=== PATIENT | female | born 1975 | race Caucasian/White ===

== ENCOUNTER 2019-11-18 15:30 | Emergency (ER) | payer MEDICAID, SELFPAY ==
[2019-11-18 15:32] VITALS: BP 140/96; PULSE 100; RESP 20; TEMP 36.4; O2SAT 100; BMI 31.6
--- NOTE | 2019-11-18 15:43 | RAD_ITS ---
STUDY: X-RAY - LUMBAR SPINE REASON FOR EXAM: Female, 44 years old. PAIN, PT FELL DOWN STEPS, PREVIOUS SURGERY, DISCECTOMY TECHNIQUE: 3 view(s) of the lumbar spine were obtained. COMPARISON: None FINDINGS: There is straightening of the normal lumbar lordosis. Mild levocurvature of the lumbar spine. There is a normal alignment of the vertebrae. Superior endplate compression deformity of L2 which appears recent which appears to involve the anterior column and central vertebral body with a 25% loss of height anteriorly without loss of height posteriorly. Compression deformity is slightly greater on the right than the left side of the vertebral body. No evidence for posterior element fracture. Normal vertebral body height at other lumbar levels. There is advanced degenerative disc narrowing, spondylitic endplate changes and discogenic sclerosis at L3-4 and L4-5. Hypertrophic facet arthrosis is present in most lumbar levels. RAD/Lumbar Spine 2 or 3 Views IMPRESSION: Straightening of the lumbar spine with a mild levocurvature. Recent superior endplate compression deformity of L2 involving primarily the central vertebral body and anterior column with 25% loss of height, greater on the right side of the vertebral body than left. Negative for evidence of posterior involvement. Advanced disc narrowing, spondylitic endplate changes and discogenic sclerosis at L3-4 and L4-5. Hypertrophic facet arthrosis at most lumbar levels. Electronically Signed: Radha France MD at 16:39 EDT , Service support ,
[2019-11-18] MEDS: Ketorolac 15 MG/ML Vial IV (16:03)
--- NOTE | 2019-11-18 16:17 | ED.VIS.GEN ---
History of Present Illness Chief Complaint: Fall Informant: Patient Onset: Today Context: Sudden Onset Timing: Continuous Quality: Pain Location: Lower back Current Severity: Moderate Maximum Severity: Severe Worsened by: Uncertain Relieved by: Nothing Associated Symptoms: No associated saddle paresthesia, radiculopathy or inability to move legs Narrative: States she fell face first going down steps but landed on her buttocks. She denies drinking. She denies head trauma. She denies loss of conscious. Denies neck pain. She does have history of chronic back pain and states she is scheduled for a fusion. She denies bowel bladder dysfunction prior to fall. She denies radicular pain. She states she has a foot drop. She is not on an anticoagulant. She reports no allergies. Prior similar symptoms: No Recent Illness/Hospitalization: No - Past Medical History (1) Chronic back pain Status: Chronic Past Medical History - Allergies and Home Meds Allergies/Adverse Reactions: Allergies No Known Allergies Allergy (Verified 11/18/19 15:35) Primary Care Physician: Rosalie Grant,Out of [Primary Care Provider] - Prior records reviewed: Yes Surgical History: noncontributory Lives: Alone Smoking Status: Current every day smoker Alcohol: Rare Drugs: None Review of Systems Eyes: Denies: Visual changes - bilaterally, Blurred Vision - bilaterally ENT: Denies: Rhinorrhea, Sore throat Cardiovascular: Denies: Chest pain, Palpitations Respiratory: Denies: Dyspnea, Cough, Dyspnea on exertion Gastrointestinal: Denies: Abdominal pain, Nausea, Vomiting, Diarrhea, Melena, Hematochezia Genitourinary: Denies: Dysuria, Hematuria, Frequency Musculoskeletal: Reports: Back pain. Denies: Myalgias, Arthralgias, Neck pain, Swelling, Extremity Pain, -, - Skin: Denies: Rash, Wounds Neurological: Denies: Headache, Weakness, Parasthesia, Numbness Endocrine: Denies: Polyuria, Polydipsia Hematologic: Denies: Easy bruising, Easy bleeding Physical Exam Vital Signs/Narrative: Vital Signs Temp Pulse Resp BP Pulse Ox 11/18/19 15:32 97.5 F L 100 20 H 140/96 H 100 Inital Vital Signs reviewed: Yes General: Well nourished, Well developed, Obese, Acute Distress Head: Normocephalic, Atraumatic, - - No clinical finding of basilar skull fracture.. Negative for: Trauma, Tenderness Eyes: Perrl, EOMI, - - No subconjunctival hemorrhage noted.. Negative for: Pale conjunctiva, Scleral icterus ENT: Moist mucous membranes, No rhinorrhea, TM's clear, - - Is no septal deviation hematoma noted. Neck: Supple, Nontender, No lymphadenopathy, No JVD, - - Active range of motion of her neck without pain. Cardiovascular: Regular rate, Regular rhythm, No murmurs, Normal S1, Normal S2 Respiratory: No distress, CTA bilaterally, Chest nontender Abdomen: Soft, Nontender, Nondistended, Normal bowel sounds, - - No pain to palpation of the pelvis. Rectal: Deferred Back: Normal Inspection, - - Bilateral paralumbar discomfort. She has pain on proportion to tactile stimuli. Of note patient screamed when I tested for Babinski sign.. Negative for: Nontender, CVA tenderness Extremities: Nontender, No edema. Negative for: Tenderness, Edema Skin: Normal color, No rash, No Trauma. Negative for: Cyanosis, Diaphoresis, Jaundice Neurological: Alert, Oriented x3, Cranial nerves II-XII grossly intact, Normal Strength, Normal Sensation, Normal DTR Psychological: Tearful Diagnostic/Tx/Re-eval Chest X-Ray - ED: Read by ED Physician, - - View x-ray of the LS spine reveals a compression fracture of L2 of undetermined age. There is minimal degenerative changes noted. Impressions Lumbar Spine X-Ray 11/18/19 15:43 IMPRESSION: Straightening of the lumbar spine with a mild levocurvature. Recent superior endplate compression deformity of L2 involving primarily the central vertebral body and anterior column with 25% loss of height, greater on the right side of the vertebral body than left. Negative for evidence of posterior involvement. Advanced disc narrowing, spondylitic endplate changes and discogenic sclerosis at L3-4 and L4-5. Hypertrophic facet arthrosis at most lumbar levels. Electronically Signed: Radha France MD at 16:39 EDT , Service support , 11/18/19 15:43 Lumbar Spine 2 or 3 Views [RAD] Stat Since the compression fracture is less than 50% there is no concern for instability or burst fracture. - Medical Decision Making IV was established. Patient was medicated with pain medicine. X-ray was obtained to rule out fracture versus contusion versus strain. ED Disposition - Plan for ED Patient: Disposition: Home or Assisted Living Diagnosis: Compression fracture of L2 lumbar vertebra Instructions: ED Fx Comp Vertebral Referrals: [facility],Out of [Primary Care Provider] - As soon as possible Additional Instructions: You are a pain management patient I do not want a violate your contract therefore you will not receive a prescription for opiate analgesics. We will need to contact her pain management physician.
[2019-11-18] MEDS: Morphine 4 MG/ML Syringe IV (17:11)
[2019-11-18 19:14] VITALS: BP 146/82; PULSE 77; RESP 16; O2SAT 99
== END 2019-11-18 19:15 | disposition home or self-care (01) ==
LOC: ED 17:40
PROVIDERS: Emergency Provider Emergency Medicine
DX: S32.029A Unspecified fracture of second lumbar vertebra, initial encounter for closed fracture (principal); W10.9XXA Fall (on) (from) unspecified stairs and steps, initial encounter; R29.890 Loss of height; M54.9 Dorsalgia, unspecified; G89.29 Other chronic pain; F17.200 Nicotine dependence, unspecified, uncomplicated
CPT/HCPCS: 72100; 96374; 96375; 99285; A4216

== ENCOUNTER → 2022-03-25 | Outpatient (CLI) | payer MEDICAID, SELFPAY ==
--- NOTE | 2022-03-25 16:33 | RAD_ITS ---
STUDY: X-RAY EXAMINATION: SCOLIOSIS SERIES REASON FOR EXAM: Female, 46 years old. Lumbar stenosis. TECHNIQUE: 3 frontal view(s) of the thoracolumbar spine were obtained in the upright standing position. COMPARISON: 11/18/2019. FINDINGS: Extensive fusion from T11 to L5 S1 and both sacroiliac joints. Minimal levoscoliosis of the lumbar spine. The soft tissue structures are unremarkable. RAD/Scoliosis 1 view IMPRESSION: Extensive fusion with minimal levoscoliosis. No acute abnormality identified on the 3 frontal views. Electronically Signed: Zac Garibay, at 10:03 EDT ,
== END | disposition home or self-care (01) ==
DX: M48.062 Spinal stenosis, lumbar region with neurogenic claudication (principal)
CPT/HCPCS: 72081

== ENCOUNTER → 2022-04-16 | Outpatient (CLI) | payer OTHER, SELFPAY ==
--- NOTE | 2022-04-16 17:05 | RAD_ITS ---
STUDY: X-RAY - CERVICAL SPINE REASON FOR EXAM: Female, 46 years old. Neck pain and headache TECHNIQUE: 7 view(s) of the cervical spine were obtained. COMPARISON: None FINDINGS: Normal anterior atlantoaxial articulation. Normal odontoid process. Normal cervical lordosis. Normal vertebral bodies and endplates. Normal disc space heights. Normal visualized intervertebral neuroforamina. No demonstrated fracture, no instability on the flexion or extension views The soft tissue structures are unremarkable. RAD/Cerv Spine Obl/Flex/Ext Comp IMPRESSION: Normal x-ray examination of the visualized cervical spine. Electronically Signed: Darian Cedeño MD at 7:49 EDT ,
--- NOTE | 2022-04-16 17:05 | RAD_ITS ---
STUDY: THORACIC AND LUMBAR SPINE REASON FOR EXAM: Female, 46 years old. Back pain with previous surgery RADIATION DOSAGE (If Supplied By Facility): CTDIvol = ( ) mGy, DLP = ( ) mGycm. Individualized dose optimization techniques were used for this CT.? TECHNIQUE: 7 views, 3 AP, 4 lateral COMPARISON: 03/25/2022 FINDINGS: There is a surgically stabilized levoscoliosis in the lumbar spine. Pedicle screw fusion has occurred from T11 to L5 and S1 including fusion through the SI joints. The hardware is intact and free of complication. No demonstrated acute or chronic fracture, there is preservation of the disc spaces in the thoracic spine but disc space narrowing throughout the lumbar spine particularly at L3-4 and L4-5 due to vacuum disc phenomena. No paraspinal mass or absent pedicle. RAD/Scoliosis 2 or 3 views IMPRESSION: Age consistent degenerative changes with stable surgical hardware from T11 through S1. No acute abnormality, October complication or failure Stable minimal levoscoliosis in the lumbar spine Electronically Signed: Darian Cedeño MD at 7:48 EDT ,
== END | disposition home or self-care (01) ==
LOC: RAD 16:55
DX: M41.85 Other forms of scoliosis, thoracolumbar region (principal); M50.90 Cervical disc disorder, unspecified, unspecified cervical region
CPT/HCPCS: 72052; 72082

== ENCOUNTER → 2022-07-10 | Outpatient (CLI) | payer OTHER, SELFPAY ==
--- NOTE | 2022-07-10 13:30 | RAD_ITS ---
STUDY: X-RAY EXAMINATION: SCOLIOSIS SERIES REASON FOR EXAM: Female, 46 years old. SCOLIOSIS TECHNIQUE: 2 view(s) of the thoracolumbar spine were obtained in the upright standing position. COMPARISON: None. FINDINGS: Lungs are hyperaerated. Lumbar hardware noted. Mild levoconvex scoliosis lumbar spine. Posterior interbody fusion rods and pedicular screws T11-S1. Compression fracture and vertebral body spacer L2. 3 to 4 mm retrolisthesis L2 on L3. This appears unchanged. Hardware appears intact. Remainder of the spine appears normal. RAD/Scoliosis 2 or 3 views IMPRESSION: Status post ORIF L2 compression fracture with slight retrolisthesis unchanged. Mild levoconvex scoliosis lumbar spine unchanged. No acute change. Electronically Signed: Durga Hugo MD at 1:01 EST ,
== END | disposition home or self-care (01) ==
LOC: RAD 13:20
PROVIDERS: PCP Family Medicine
DX: M51.26 Other intervertebral disc displacement, lumbar region (principal); M41.85 Other forms of scoliosis, thoracolumbar region
CPT/HCPCS: 72082

== ENCOUNTER → 2023-10-28 | Outpatient (CLI) | payer BC, MEDICAID, SELFPAY ==
--- NOTE | 2023-10-28 12:15 | RAD_ITS ---
STUDY: X-RAY - THORACIC SPINE REASON FOR EXAM: Female, 48 years old. Spinal fusion. Follow-up. TECHNIQUE: 2 view(s) of the thoracic spine were obtained on 3 images. COMPARISON: July 10, 2022 FINDINGS: Increased kyphosis, unchanged. No scoliosis. Posterior fusion from T11 with intervertebral disc prosthesis at L1-2, unchanged in position and alignment. Diffuse intervertebral disc space narrowing, unchanged. Normal soft tissues. RAD/Thoracic Spine 2 Views IMPRESSION: Stable posterior fusion of the lower thoracic spine with diffuse mild spondylosis. No complications. Electronically Signed: Zac Garibay MD at 10:19 EDT ,
== END | disposition home or self-care (01) ==
PROVIDERS: PCP Family Medicine
DX: M43.24 Fusion of spine, thoracic region (principal)
CPT/HCPCS: 72070

== ENCOUNTER → 2023-11-17 | Outpatient (CLI) | payer BC, MEDICAID, SELFPAY ==
--- NOTE | 2023-11-17 07:05 | CT_ITS ---
INDICATION: RADICULOPATHY LUMBAR REGION EXAMINATION: CT LUMBAR SPINE - CT Spine Lumbar W/ Contrast Injection TECHNIQUE: Helically acquired images were obtained of the lumbar spine. 2D reformats were reviewed. A radiation dose optimization technique was used for this scan. IV Contrast dosage and agent: None. COMPARISON: Scoliosis survey 07/10/2022. FINDINGS: VERTEBRAE: No fracture or acute compression deformity. Prior L2 laminectomy with vertebral body spacer placement. Additional multilevel laminectomy throughout the lower thoracic and lumbar spine. Bilateral transpedicular fixation T11-S1 and bilateral iliac wing. No discrete lytic or blastic abnormality observed. Preserved lumbar lordosis and lower thoracic kyphosis without listhesis. DISCS and SPINAL CANAL: Bulky T10-T11 spinal canal osseous stenosis, axial image 10 series 2 partially decompressed by laminectomy. Diffuse disc height loss without gross posterior disc protrusion. VISUALIZED ABDOMEN: Visualized abdominal aorta is not dilated. There is no retroperitoneal adenopathy. Aortic atherosclerosis without ectasia. CT/Spine Lumbar WITH Contrast IMPRESSION: Bulky osseous proliferation along the spinal canal at T10-T11 with severe spinal stenosis, at least partially decompressed by laminectomy. Laminectomies throughout the lower thoracic and lumbar spine with transpedicular fixation T11-S1 and iliac wings. Electronically Signed: Ned Doyle MD at 23:09 EDT ,
== END | disposition home or self-care (01) ==
LOC: CT 07:02
PROVIDERS: PCP Family Medicine; Referring Provider Registered Nurse Maternal Newborn; Visit Provider Registered Nurse Maternal Newborn
DX: M54.16 Radiculopathy, lumbar region (principal); M21.372 Foot drop, left foot; M43.26 Fusion of spine, lumbar region
CPT/HCPCS: 72132; Q9967

== ENCOUNTER 2024-05-25 13:00 | Outpatient (RCR) | payer BC, SELFPAY ==
--- NOTE | 2024-03-10 12:26 | HP.PTEVAL_ITS ---
Patient's Visit Information Visit Information Visit Information: TAMMY MARTINEZ is a 48 year old F referred to Physical Therapy by EDITH KUMAR with a diagnosis of Postural kyphosis thoracic region, s/p t8-10 instrumentation, discectomy. Date of Evaluation: 03/10/24 Physical Therapist: Ranjit Christiansen, DPT, OCS, CSCS Visit Plan Frequency: 3x /Week Duration: 4-6 Weeks Plan: 3x/week for 4-6 weeks for 1. pelvic and spinal ROm emphasizing extnesion PROM and AROM exercises/yoga 2. core and LE and postural stregnth home mat to gym 3. balance work on pregait and somatosensory coordination of feet and ankles, please teach ankle TB strength for HEP early on 4. end with prone extension to tolerance or supine flat lie with MH for 5 min to stretch ourt psoas and get spine to extension. IE: sink exercises to 3x10, supine flat lie savasan 3-5 min 3x/day and walk up tall with walker for safety only, not leaning on it Subjective Subjective: Just had 4th spine surgery.Thoracic arthrodesis and discectomy. this was emergency due to R leg weak and not moving. Also B leg weakness. They were hard to move. Had pain in middle of back at the time also(also has lumbar pain from previous surgeires). Was dealing with that for 6 monthys gradually worsening. Has lost the feeling in bottoms of feet prior to surgery and that is coming back slowly. Got most of the rest of it back. Got most of leg movement back. May not get feeling in feet back. Unable to drive to numbness in feet. Sleep has been OK for the most part. Had spine surgery in fusion in LB 2 yrs ago with rods. On disability through work. Rests alot. Doctor thinks back to work in March. Works at [employer] on feet walking 40 hrs per week. Hobbies: none, Basic ADLs, dresses, bathroom, shower on own. slow but able but gets worn out. Steps 5 to room with railing, with railing. uses wh walker to get around much of time. sometimes without it at home. Precuations from doctor: nothing from patient. Had home health and doing kitchen sink [id number] Pain mid back: Pain Intensity (Out of 10): 0 Pain Intensity Range: 0 and 8 Comment: worse with waking at night sometimes, walking alot. Objective Objective: Walks relying in wh walker with uch weight through it hunched FW and R foot toe ing out.Mod I gait with walker. Min A without walker due to balance, has neuropathy in gait pattern without pushoff of ankles and short steps. trasnfers bed and chair I with UE. steps prefers r and needs rail but mod I up and down. standing balance wihtout walker CGA and hunches FW, kyphotic in t/s. incsion is central thoracic for the new one and healed well without much tenderness or any excessive redness, heat or swelling. Old incisions in lumbar area. Very poor to minimal pelvic movement especially anteriorly. Spinal multisegmental ROM ext only barey to neutral and hurts LB, SB max limited and contralterally uncomfortable thoracic. flexion is good but needs stability of UE to bend and recover. strength ankles DF R 3+ and L 4-, inv/.ev 3+ B, PF able to toe raise., knees 4/5 flexion and ext, hip abd and ext 3+ B, flexion 3+ B. Core abs 3, extensors 3. rom WFL but tightness in psoas makes flat supine stretchy and uncomfy. reflexes 2/3 patella adn achilles B. Sensation LE at deficit to gross light touch in feet and into Lower legs. Balance/Special Test Scores Oswestry Low Back Score: 27 Goals Goal 1:: stand without walker ec 30 seconds easilya nd safely Goal Time Frame: 4-6 Weeks Goal 2:: I appropriate HEP for core strenght/balance and spinal ROM to limit future problems. Goal Time Frame: 4-6 Weeks Goal 3:: Pain 2/10 at worst and 75% better Goal Time Frame: 4-6 Weeks Goal 4:: walk without AD one lap safely and without hunching over. Goal Time Frame: 4-6 Weeks Goal 5:: oswestry score 10 or better Goal Time Frame: 4-6 Weeks Rehabilitation Potential Physical Therapy Diagnosis: back stiffness and weakness in trunk and legs and sensory deficits causing balance and mobility problems. Rehabilitation Potential: Fair Anticipated Interventions Patient/Client Instruction: Educate patient on: Condition and Plan of Care For the Purpose of:: To decrease pain, To increase ROM and To improve nutrient delivery to tissue Therapeutic Exercise to Include: Strength training, Balance training, Coordination, Postural training, Flexibilty training, Gait and locomotor training, Passive ROM, Active ROM and Dynamic Lumbar Stabilization For the Purpose of:: To decrease pain, To increase ROM, To improve nutrient delivery to tissue, To improve muscle performance and motor function, To increase tolerance to activity/condition/position and To improve gait and locomotor functions Manual Therapy Techniques to Include: Scar massage, Mobilization, Passive ROM and Soft tissue mobilization For the Purpose of:: To decrease pain and To increase ROM Thermo therapy (hot pack): Yes For the Purpose of:: To decrease pain and To increase ROM Text: Thank you for the opportunity to evaluate your patient. For Medicare and Medicare HMO plans, please review the plan of care and approve it. It will need to be FAXED BACK to us at [phone] for Medicare purposes. For Medicare only, by signing this I certify the plan of care. Please let me know if there are questions or concerns regarding this plan of care. Physician Signature: Date:
--- NOTE | 2024-04-22 13:45 | HP.PTREVAL ---
Re-Evaluation Intro: EDITH KUMAR, It has been my pleasure to treat TAMMY MARTINEZ over the last 7 visits for Postural kyphosis thoracic region, s/p t8-10 instrumentation, discectomy. Please see the progress note below for an update on the physical therapy plan of care! Subjective Subjective: Didn't have a ride last couple weeks. She drove here today herself. Using cane to get around now as brother is using walker. Driving wears her out. better mobility. Still pain 6-8/10 normally. Activitiy makes it worse and has been very busy as she is helping her brother out. Lots of family responsibilities currently. Sleep is OK most of time. Activities, doing things but gets painful. 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 HEP going well. daily and standing at sink. To pain doctor in April adn surgeon Jun 27, still on no heavy lifting precautions or twisting lifting, bending. Objective Objective/Function: Walking with cane in PT hunched over and poor pelvic movment but can stand up tall with VC and tends to look up at ceiling until cued. Transfers chair without UE I. Stands with out cane I. Walks without cane I and takes FGA without it today. LB AROM ext max limited but improving, flexion not tested. C/o pain but improving overall. +6 points on oswestry. FGA tolerated now and doing better Approrpriate to cotninue therapy due to nice progress and still work to be done on gait and progression of strength. Fair prognosis Plan Plan Plan: 2x/week for 4-6 weeks until mid May for... 1. Encourage continue HEP ROM and mat based core strength and gait progression. 2. Teach gym based strength for LE , UE and progress to I. 3. Wrok on gait progression with volume, upright positioning. balance with funciton. Balance/Gait/Functional tests Balance/Special Test Scores Functional Gait Assessment Score: 21 % Disability: 30.0000 Oswestry Low Back Score: 21 Goals Goals Goal 1:: stand without walker ec 30 seconds easilya nd safely Goal Time Frame: 4-6 Weeks Goal Progress: Goal Met Goal 2:: I appropriate HEP for core strenght/balance and spinal ROM to limit future problems. Goal Time Frame: 4-6 Weeks Goal Progress: Goal Met Goal 3:: Pain 2/10 at worst and 75% better Goal Time Frame: 4-6 Weeks Goal Progress: Progressing, appropriate Goal 4:: walk without AD one lap safely and without hunching over. Goal Time Frame: 4-6 Weeks Goal Progress: cane needed, approp Goal 5:: oswestry score 10 or better Goal Time Frame: 4-6 Weeks Goal Progress: Progressing, appropriate Goal 6:: I appropriate gym program without increased pain Goal Time Frame: 4-6 Weeks Goal Progress: NEW GOAL Anticipated Interventions Anticipated Interventions Patient/Client Instruction: Educate patient on: Condition and Plan of Care For the Purpose of:: To decrease pain, To increase ROM and To improve nutrient delivery to tissue Therapeutic Exercise to Include: Strength training, Balance training, Coordination, Postural training, Flexibilty training, Gait and locomotor training, Passive ROM, Active ROM and Dynamic Lumbar Stabilization For the Purpose of:: To decrease pain, To increase ROM, To improve nutrient delivery to tissue, To improve muscle performance and motor function, To increase tolerance to activity/condition/position and To improve gait and locomotor functions Manual Therapy Techniques to Include: Scar massage, Mobilization, Passive ROM and Soft tissue mobilization For the Purpose of:: To decrease pain and To increase ROM Thermo therapy (hot pack): Yes For the Purpose of:: To decrease pain and To increase ROM Re-Evaluation Ending Re-evaluation ending: Please do not hesitate to contact me at [phone] by phone or if you have questions or concerns regarding this new plan of care! Sincerely, Ranjit Christiansen, DPT, OCS, CSCS
--- NOTE | 2024-07-11 09:20 | HP.PT.NRP ---
Patient Information Patient Information: TAMMY MARTINEZ was seen in my office for initial evaluation on 03/10/24. The following Plan of Care was established for this patient: POC Established Initial Frequency: 3x /Week Initial Duration: 4-6 Weeks Anticipated Interventions Patient/Client Instruction: Educate patient on: Condition and Plan of Care For the Purpose of:: To decrease pain, To increase ROM and To improve nutrient delivery to tissue Therapeutic Exercise to Include: Strength training, Balance training, Coordination, Postural training, Flexibilty training, Gait and locomotor training, Passive ROM, Active ROM and Dynamic Lumbar Stabilization For the Purpose of:: To decrease pain, To increase ROM, To improve nutrient delivery to tissue, To improve muscle performance and motor function, To increase tolerance to activity/condition/position and To improve gait and locomotor functions Manual Therapy Techniques to Include: Scar massage, Mobilization, Passive ROM and Soft tissue mobilization For the Purpose of:: To decrease pain and To increase ROM Thermo therapy (hot pack): Yes For the Purpose of:: To decrease pain and To increase ROM Last Seen Last Seen: This patient was last seen in our office 05/15/25. Pertinent comments regarding their Physical therapy will appear below: Pt seen 12 visits of POC and was at least 50% better at last recheck. she has cancelled the remaining visits in POC without rescheduling and I will discontinue from my care. At this point I will be discontinuing this patient from physical therapy. I would be happy to see this patient again in the future if found appropriate by the physician. Thank you! Ranjit Christiansen, DPT, OCS, CSCS Balance/Gait/Functional tests Balance/Special Test Scores Functional Gait Assessment Score: 21 % Disability: 30.0000 Oswestry Low Back Score: 21
== END 2024-05-25 19:00 | disposition home or self-care (01) ==
LOC: PT 13:00
PROVIDERS: PCP Family Medicine
DX: M40.04 Postural kyphosis, thoracic region (principal)
CPT/HCPCS: 97110; 97116; 97163

== ENCOUNTER 2024-09-09 12:51 | Emergency (ER) | payer BC, SELFPAY ==
[2024-09-09 12:52] VITALS: BP 107/94; PULSE 95; RESP 16; TEMP 36.3; O2SAT 99
[2024-09-09 14:44] VITALS: BMI 34.2
--- NOTE | 2024-09-09 15:14 | EDS_ITS ---
HPI History of Present Illness Chief Complaint: Back Narrative Narrative: Patient is a 48-year-old female with previous past medical history of several back surgeries per the patient who presents to the emergency department chief complaint of low back pain. Patient states that this morning she was getting ready for work and bent over to get her shoes and heard a loud pop in the lower left side of her back. Patient states that she sat there and was eventually able to make it to work. She states that she worked this morning up until a lunch break. States that when she went to return to work she had extreme pain causing her to almost fall. She states that her managers had her sit down in a chair and was unable to get up and work anymore therefore she came here for the valuation management. Patient states that she does follow-up pain management and takes [place], tizanidine, Advil and pregabalin. Patient rates her pain a 9 out of 10. [facility] Medical History Back pain with history of spinal surgery Home Medications ?Medication ?Instructions ?Recorded ?Last Taken ?Type duloxetine 60 mg capsule,delayed 120 mg PO DAILY 11/17 Unknown History release hydrocodone 7.5 mg-acetaminophen 1 ea PO Q6H PRN PRN P ain Score 11/18/19 Unknown History 325 mg tablet 1-10 ibuprofen 800 mg tablet 800 mg PO TID PRN PRN Pain S core 11/18/19 Unknown History 1-04/07 tizanidine 6 mg capsule 6 mg PO Q8H 11/18/19 Unknown History lidocaine 5 % topical patch 1 patch topical DAILY #15 ea 09/09/24 Unknown Rx (Lidoderm) pregabalin 150 mg capsule 150 mg PO TID 09/09/24 Unkno wn History Allergy/AdvReac Type Severity Reaction Status Date / Time No Known Allergies Allergy Verified 09/09/24 12:54 Social History Smoking Status: Current every day smoker tobacco type: cigarettes ROS ROS ED ROS Narrative Constitutional: Denies fevers, chills, headaches, lightness, dizziness Cardiovascular: Denies chest pain Respiratory: Denies shortness of breath Abdomen: Denies nausea vomit diarrhea : Denies any difficulty urinating, denies any other urinary symptoms Neurological: Denies numbness, weakness, tingling Musculoskeletal: Complains of left back pain radiating to her left buttock region Skin: Denies any rashes or lesions EXAM Physical Exam Narrative Exam Narrative: General: Patient lying in bed rest comfortably did not appear to be in acute distress Head: Atraumatic, normocephalic Eyes: PERRL bilateral, EOMI bilateral, no conjunctival injection noted Neck: Soft, supple, trachea midline Cardiovascular: Regular rate and rhythm no murmurs gallops rubs noted Respiratory: Clear to auscultation bilaterally Abdomen: Soft, nondistended, no tenderness palpation Extremities: +4/5 strength noted in the bilateral upper and lower extremities, radial pulses +2/4 in the bilateral extremities, DP pulses +2/4 in the bilateral lower extremities, no pedal edema on exam, compartments soft and compressible Neurological: Patient is following commands knew that she is at [facility] year is 2024. Sensation grossly intact no saddle anesthesia noted Skin: Warm, dry, intact no rashes or lesions noted Const Vital Signs: 09/09/24 12:52 09/09/24 16:59 Temperature 97.4 F L Temperature Source Oral Pulse Rate 95 87 Respiratory Rate 16 16 Blood Pressure 107/94 H 145/83 H Blood Pressure Mean 98 103 Pulse Ox 99 98 Oxygen Delivery Method Room Air Room Air MDM MDM MDM Narrative Medical decision making narrative: Patient is a 48-year-old female who presented to the emergency department chief complaint of low back pain. On the differential diagnose includes but not limited to hardware failure, musculoskeletal strain. Once workup is obtained reviewed she will be reevaluated. Patient be given IM Toradol and Valium. Patient CT lumbar spine showed multilevel postoperative changes posterior fusion and laminectomy. Multilevel degenerative changes without high-grade canal stenosis or neural foraminal narrowing. No acute fracture or traumatic malalignment. Reevaluation patient she would like to go home at this point time. She was adv ised to follow-up with her pain management physician as well as her primary care doctor and use the prescriptions that she is already prescribed by them. She will be given Lidoderm patches. She is encouraged return with worsening symptoms or concerns. She is agreeable to plan all question concerns answered she was discharged home in stable addition Radiography Diagnostic Testing: Clinical Impression(s) from Imaging Studies Lumbar Spine CT 09/09/24 15:40 IMPRESSION: 1. Multilevel postoperative changes of posterior fusion and laminectomy as described above. 2. Multilevel degenerative changes without high-grade canal stenosis or neural foraminal narrowing. 3. No acute fracture or traumatic malalignment. One or more dose reduction techniques were used (e.g., Automated exposure control, adjustment of the mA and/or kV according to patient size, use of iterative reconstruction technique). [facility] Triage Chief Complaint: Back ED Provider: Gaurav San Dx/Rx/DC Orders Clinical Impression: Back pain Instructions: Back Exercises: Back Release Prescriptions: New lidocaine [Lidoderm] 5 % adhesive patch,medicated 1 patch topical DAILY Qty: 15 0RF Rx Instructions: leave on most painful area for up to 12 hrs No Action ibuprofen 800 MG tablet 800 mg PO TID PRN PRN (Reason: Pain Score 1-10/10) hydrocodone-acetaminophen 1 EACH tablet 1 ea PO Q6H PRN PRN (Reason: Pain Score 1-10/10) duloxetine 60 MG capsule 120 mg PO DAILY tizanidine 6 MG capsule 6 mg PO Q8H pregabalin 150 mg capsule 150 mg PO TID Primary Care Provider: MARLI LOW Referrals: MARLI LOW MD [Primary Care Provider] - Activity Restrictions/Additional Instructions: Follow-up with your pain management doctor as well as your family doctor in outpatient setting. Your CT here today did not show any acute broken bones or h ardware failure. Take prescriptions as prescribed and use the Lidoderm patch on top of this. Return with worsening symptoms or any concerns Print Language: Micronesian Disposition Disposition: Home, Self Care
[2024-09-09] MEDS: Ketorolac 30 MG/ML Syringe IM (15:26)
[2024-09-09] MEDS: diazePAM 5 MG Tablet 2.5 MG PO (15:26)
--- NOTE | 2024-09-09 15:40 | CT_ITS ---
PROCEDURE: SPINE LUMBAR WITHOUT CONTRAST REASON FOR EXAM: HX OF BACK SURGERY, HEARD LOUD POP IN LOW BACK TECHNIQUE: Lumbar spine CT without contrast. COMPARISON: CT lumbar spine 11/17/2023 FINDINGS: Vertebrae: Lumbar lordosis is maintained. Postoperative changes T12-S1 posterior fusion and L3 laminectomy, with interconnecting rods, pedicle screws and L1-L2 strut. Ghost tracts from prior pedicle screws are also noted at T11 vertebral body. Vertebral body heights are maintained. Multilevel loss of disc space throughout the lumbar spine most prominent at L3-L4. No acute fracture or traumatic malalignment. Multilevel degenerative changes, without high-grade canal stenosis or neural foraminal narrowing. Sacrum: Visualized upper sacrum and SI joints are unremarkable. Visualized retroperitoneal structures are unremarkable. CT/Spine Lumbar without Contrast IMPRESSION: 1. Multilevel postoperative changes of posterior fusion and laminectomy as desc ribed above. 2. Multilevel degenerative changes without high-grade canal stenosis or neural foraminal narrowing. 3. No acute fracture or traumatic malalignment. One or more dose reduction techniques were used (e.g., Automated exposure contr ol, adjustment of the mA and/or kV according to patient size, use of iterative reconstruction technique). Reading Location: [facility]
[2024-09-09 16:59] VITALS: BP 145/83; PULSE 87; RESP 16; O2SAT 98
== END 2024-09-09 18:34 | disposition home or self-care (01) ==
PROVIDERS: Emergency Provider Emergency Medicine; PCP Family Medicine; Visit Provider Emergency Medicine
DX: M54.9 Dorsalgia, unspecified (principal); F17.210 Nicotine dependence, cigarettes, uncomplicated
CPT/HCPCS: 72131; 96372; 99282